=== PATIENT | female | born 1935 | race Caucasian/White ===

== ENCOUNTER 2018-02-25 15:51 | Emergency (ER) | payer SELFPAY ==
[~2018-02-25] VITALS: Ht 149.9 cm; Wt 53.0 kg
[2018-02-25] MEDS ORDERED: ONDANSETRON ODT 4 MG ONE (17:11)
[2018-02-25] MEDS ORDERED: HYDROmorphone 2 MG/ML, 1ML ONE (17:11)
[2018-02-25] MEDS ORDERED: HYDROmorphone 1 MG/ML, 1ML IM ONE (17:30)
[2018-02-25] MEDS ORDERED: ONDANSETRON ODT 4 MG PO ONE (17:30)
[2018-02-25 17:49] VITALS: BP 122/64
== END 2018-02-25 17:51 | disposition home or self-care (01) ==
LOC: ED 17:35
DX: M25.511 Pain in right shoulder (principal); I10 Essential (primary) hypertension; E03.9 Hypothyroidism, unspecified
CPT/HCPCS: 73030; 73060; 96372; 99284; J1170; Q0162